=== PATIENT | male | born 1995 | race Caucasian/White ===

== ENCOUNTER 2017-09-22 00:37 | Emergency (ER) | payer BC ==
[~2017-09-22] VITALS: Ht 188 cm; Wt 110.0 kg
[2017-09-22 00:40] VITALS: BP 108/54; PULSE 145; RESP 17; TEMP 99.7; O2SAT 95
[2017-09-22] MEDS ORDERED: CITA10TA4 PO (00:48)
[2017-09-22] MEDS ORDERED: TRAZ50TA12 PO (00:48)
[2017-09-22] MEDS ORDERED: CIPR250T52 PO (00:48)
[2017-09-22] MEDS ORDERED: SODIUM CHLOR 0.9% 1000 ML INJ 1,000 ML IV ONE (01:15)
[2017-09-22 01:39] LABS: AUTOMATED NEUTROPHIL # 6.7 TH/MM3 (1.8-7.7); BASOPHIL % 0.1 % (0.0-2.0); EOSINOPHIL % 0.3 % (0.0-4.0); HEMATOCRIT 40.2 % (39.0-51.0); HEMOGLOBIN 13.7 GM/DL (13.0-17.0); LYMPH % 5.4 % (9.0-44.0); LYMPHOCYTE # 0.4 TH/MM3 (1.0-4.8); MEAN CELL VOLUME 89.8 FL (80.0-100.0); MEAN CORPUSCULAR HEMOGLOBIN 30.6 PG (27.0-34.0); MEAN PLATELET VOLUME 7.8 FL (7.0-11.0); MONO % 2.4 % (0.0-8.0); MONOCYTE # 0.2 TH/MM3 (0-0.9); NEUT % 91.8 % (16.0-70.0); PLATELET COUNT 184 TH/MM3 (150-450); RED BLOOD COUNT 4.48 MIL/MM3 (4.50-5.90); RED CELL DISTRIBUTION WIDTH 13.8 % (11.6-17.2); WHITE BLOOD COUNT 7.3 TH/MM3 (4.0-11.0)
--- NOTE | 2017-09-22 01:45 | RADRPT ---
EXAM DATE: 09/22/2017 1:36 AM EDT AGE/SEX: 21 years / Male INDICATIONS: Fever. Congestion. CLINICAL DATA: This is the patient's initial encounter. Patient reports that signs and symptoms have been present for 3 days and indicates a pain score of 4/10. MEDICAL/SURGICAL HISTORY: None. None. COMPARISON: No prior exams available for comparison. FINDINGS: A single AP view of the chest demonstrates the lungs to be symmetrically aerated without evidence of mass, infiltrate or effusion. The cardiomediastinal contours are unremarkable. Osseous structures a re intact. CONCLUSION: No acute cardiopulmonary process. Electronically signed by: Abimael Adams MD 09/22/2017 1:44 AM EDT
[2017-09-22 01:47] LABS: BACTERIA, URINE MANY /hpf; BILIRUBIN, URINE NEG (NEG); BLOOD, URINE MOD (NEG); GLUCOSE,URINE NEG (NEG); KETONE, URINE NEG (NEG); MUCUS URINE FEW /lpf (OCC); NITRITE,URINE POS (NEG); URINE COLOR YELLOW (YELLW/STRAW); URINE LEUKOCYTE ESTERASE LARGE (NEG)
[2017-09-22 01:49] LABS: INTERNATIONAL NORMALIZED RATIO 1.1 RATIO; PROTHROMBIN TIME - PATIENT 10.7 SEC (9.8-11.6)
[2017-09-22 01:59] VITALS: TEMP 98.9
[2017-09-22] MEDS ORDERED: VANCOMYCIN INJ 1,000 MG in SODIUM CHLOR 0.9% 250 ML INJ 250 ML IV ONE (02:00)
[2017-09-22] MEDS ORDERED: CEFEPIME INJ 2,000 MG in SODIUM CHLORIDE 0.9% INJ 100 ML IV STA (02:00)
[2017-09-22 02:02] LABS: ALT (GPT) 34 U/L (12-78); AST (GOT) 9 U/L (15-37); BICARBONATE 26.3 MEQ/L (21.0-32.0); BLOOD UREA NITROGEN 8 MG/DL (7-18); C-REACTIVE PROTEIN 1.33 MG/DL (0.00-0.30); CALCIUM 8.2 MG/DL (8.5-10.1); CHLORIDE 107 MEQ/L (98-107); CREATININE 0.64 MG/DL (0.60-1.30); GLOMERULAR FILTRATION RATE 155 ML/MIN (>89); GLUCOSE,RANDOM 84 MG/DL (74-106); MAGNESIUM 1.7 MG/DL (1.5-2.5); SODIUM (NA) 142 MEQ/L (136-145)
[2017-09-22 02:05] LABS: ALKALINE PHOSPHATASE 63 U/L (45-117); TOTAL BILIRUBIN ADULT 0.5 MG/DL (0.2-1.0)
[2017-09-22 02:17] VITALS: RESP 20
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
[2017-09-22] MEDS ORDERED: BACT800T5 PO (03:32)
--- NOTE | 2017-09-22 22:58 | EKG ---
Date Performed: 09/22/2017 Time Performed: 01:47:43 PTAGE: 21 years EKG: SINUS TACHYCARDIA POSSIBLE LEFT ATRIAL ENLARGEMENT INDETERMINATE AXIS POSSIBLE RIGHT VENTRI CULAR CONDUCTION DELAY NONSPECIFIC ST ELEVATION ABNORMAL RHYTHM ECG NO PREVIOUS TRACING DOCTOR: Lisandro Cisneros Interpretating Date/Time 09/22/2017 22:57:53
== END 2017-09-22 05:23 | disposition home or self-care (01) ==
LOC: NEPC 00:37
DX: T83.511A Infection and inflammatory reaction due to indwelling urethral catheter, initial encounter (principal); R78.81 Bacteremia; R00.0 Tachycardia, unspecified; R11.2 Nausea with vomiting, unspecified; G82.20 Paraplegia, unspecified
CPT/HCPCS: 51702; 71045; 80053; 81001; 83605; 83690; 83735; 85025; 85610; 85730; 86140; 87040; 87077; 87086; 87186; 87205; 93005; 96361; 96365; 96375; 99285; J0692; J3370; J7030; J7050

== ENCOUNTER 2017-09-22 21:08 | Inpatient (IN) ==
[2017-12-31 12:30] VITALS: BP_SYST 127; PULSE 78; RESP 20; O2SAT 98
== END 2017-09-27 12:56 | disposition home health service (06) ==
LOC: N07 23:00
PROVIDERS: ADMIT Hospitalist; ATTEND Hospitalist